=== PATIENT | male | born 1985 | race Caucasian/White ===

== ENCOUNTER 2023-03-18 03:31 | Emergency (ER) | payer SELFPAY ==
[~2023-03-18] VITALS: Ht 165.1 cm; Wt 79.4 kg
[2023-03-18 03:33] VITALS: BP 136/92; PULSE 75; RESP 17; TEMP 97.6; O2SAT 96
[2023-03-18 03:46] VITALS: BP 153/102
[2023-03-18 03:48] VITALS: O2SAT 98
[2023-03-18] MEDS ORDERED: lisinopriL 20 MG TAB PO ONE (03:55)
[2023-03-18] MEDS ORDERED: ONDANSETRON 4 MG ODT PO ONE (04:25)
[2023-03-18] MEDS ORDERED: MORPHINE SULFATE 4 MG/ML SYR IM ONE (04:25)
[2023-03-18] MEDS ORDERED: LISI20TA29 PO (05:55)
== END 2023-03-18 06:05 | disposition home or self-care (01) ==
LOC: MED 03:31
DX: I10 Essential (primary) hypertension (principal); R51.9 Headache, unspecified; Z79.899 Other long term (current) drug therapy; Z88.0 Allergy status to penicillin
CPT/HCPCS: 93005; 96372; 99283; J2270; Q0162